=== PATIENT | male | born 1955 | race Caucasian/White ===

== ENCOUNTER → 2016-07-17 | Outpatient (CLI) | payer OTHER | LOC: FIMAGING 07:23 | PROVIDERS: ATTEND Family Medicine | DX: M77.32 Calcaneal spur, left foot (principal); E83.52 Hypercalcemia; E55.9 Vitamin D deficiency, unspecified; E21.3 Hyperparathyroidism, unspecified ==

== ENCOUNTER → 2016-11-09 | Outpatient (CLI) | payer OTHER | LOC: FIMAGING 10:02 | PROVIDERS: ATTEND Surgery | DX: D35.1 Benign neoplasm of parathyroid gland (principal); E21.3 Hyperparathyroidism, unspecified; E83.52 Hypercalcemia | CPT/HCPCS: 78070; A9500 ==

== ENCOUNTER → 2016-11-26 | Outpatient (CLI) | payer OTHER | LOC: FIMAGING 15:54 | PROVIDERS: ATTEND Surgery | DX: D44.2 Neoplasm of uncertain behavior of parathyroid gland (principal); E04.1 Nontoxic single thyroid nodule; E21.3 Hyperparathyroidism, unspecified ==

== ENCOUNTER 2016-12-28 10:23 | Observation (INO) | payer OTHER ==
[2016-12-28] MEDS ORDERED: THROMBIN (BOVINE) 5,000 UNIT VIAL TP ONE (10:25)
[2016-12-28] MEDS ORDERED: BUPIVACAINE 0.25% 30 ML SDV ONE (10:25)
[2016-12-28] MEDS ORDERED: ceFAZolin 2 GM/DEXTROSE 100 ML IV ONE (10:59)
[2016-12-28] MEDS ORDERED: LR 1,000 ML IV SCH (10:59)
--- NOTE | 2016-12-28 11:04 | PDHPUP ---
History & Physical Update H&P update statement: This history and physical update is based on an assessment of the patient which was completed after admission or registration (within 24 hours), but prior to the surgery/procedure.
[2016-12-28] MEDS ORDERED: MIDAZOLAM 2 MG/2 ML VIAL IVP ONE (11:18)
--- NOTE | 2016-12-28 11:18 | PDANEPAE ---
ANE History of Present Illness 61 yo for parathroidectomy ANE Past Medical History - Cardiovascular History Hx Hypertension: No Hx Arrhythmias: No Hx Chest Pain: No Hx Coronary Artery / Peripheral Vascular Disease: No Hx CHF / Valvular Disease: No Hx Palpitations: No - Pulmonary History Hx COPD: No Hx Asthma/Reactive Airway Disease: No Hx Recent Upper Respiratory Infection: No Hx Oxygen in Use at Home: No Hx Sleep Apnea: Yes Sleep Apnea Screening Result - Last Documented: Positive Pulmonary History Comment: dx with SHARRI -losing wt to alleviate condition. - Neurologic History Hx Cerebrovascular Accident: No Hx Seizures: No Hx Dementia: No - Endocrine History Hx Diabetes: No - Renal History Hx Renal Disorders: No - Liver History Hx Hepatic Disorders: No - Neurological & Psychiatric Hx Hx Neurological and Psychiatric Disorders: Yes Neurological / Psychiatric History Comment: Bipolar type 2 - Cancer History Hx Cancer: No - Congenital Disorder History Hx Congenital Disorders: No - GI History Hx Gastrointestinal Disorders: Yes - Other Health History Other Health History: hyperparathyroidism, Hypercalcemia, nodule of thyroid-3 cm. plantar fascitis. - Chronic Pain History Chronic Pain: Yes (muscle aches/Calcium) - Surgical History Prior Surgeries: L Bankhart procedure L shoulder. 3 arthroscopic sx on each knee. ganglion cyst x2. scar tissue excision foot. inguinal hernia w/mesh ANE Review of Systems Review of Systems: - Exercise capacity METS (RN): 4 METS ANE Patient History - Allergies Allergies/Adverse Reactions: No Known Allergies Allergy (Unverified 12/12/16 16:07) - Home Medications Home Medications: Seroquel 12/12/16 [Last Taken Unknown] Synthroid 12/12/16 [Last Taken Unknown] Viagra 12/12/16 [Last Taken Unknown] - NPO status NPO Since - Liquids (Date): 01/18/17 NPO Since - Liquids (Time): 09:00 NPO Since - Solids (Date): 01/17/17 NPO Since - Solids (Time): 20:00 - Smoking Hx Smoking Status: Former smoker ANE Labs/Vital Signs - Vital Signs Blood Pressure: 154/80 Heart Rate: 46 Respiratory Rate: 18 O2 Sat (%): 95 Height: 5 ft 10 in Weight: 86.183 kg ANE Physical Exam - Airway Neck exam: FROM Mallampati Score: Class 2 - Pulmonary Pulmonary: no respiratory distress - Cardiovascular Cardiovascular: regular rate and rhythym - ASA Status ASA Status: II ANE Anesthesia Plan Anesthesia Plan: general endotracheal anesthesia
[2016-12-28 11:28] LABS: % IMMATURE GRANULYOCYTES 0.1 % (0.0-1.1); ABSOLUTE IMMATURE GRANULOCYTES 0.01 10^3/uL (0.00-0.10); ADD DIFF? NO; ADD MORPH? NO; ADD SCAN? NO; ATYPICAL LYMPHOCYTE FLAG 0 (0-99); FRAGMENT RBC FLAG 0 (0-99); HEMATOCRIT 46.7 % (40.0-51.0); HEMOGLOBIN 16.1 g/dL (13.7-17.5); LEFT SHIFT FLG 0 (0-99); LIPEMIA HEMOLYSIS FLAG 90 (0-99); MEAN CELL HEMOGLOBIN 29.7 pg (27.9-34.1); MEAN CELL HEMOGLOBIN CONCENTR. 34.5 g/dL (32.4-36.7); MEAN PLATELET VOLUME 9.6 fL (8.7-11.7); PLATELET CLUMPS FLAG 20 (0-99); PLATELET COUNT 302 10^3/uL (150-400); RED BLOOD CELL COUNT 5.43 10^6/uL (4.40-6.38); RED CELL DISTRIBUTION WIDTH 13.2 % (11.5-15.2)
[2016-12-28] MEDS ORDERED: PROPOFOL/EMULSION 500 MG/50 ML BOTTLE IV ONE (11:41)
[2016-12-28] MEDS ORDERED: REMIFENTANIL HCL 1 MG VIAL ONE (11:41)
[2016-12-28] MEDS ORDERED: fentaNYL 100 MCG/2 ML INJ ONE (11:41)
[2016-12-28 11:42] LABS: ANION GAP 9 mEq/L (8-16); CALCIUM 12.4 mg/dL (8.5-10.4); CARBON DIOXIDE 22 mEq/l (22-31); CHLORIDE 107 mEq/L (97-110); CREATININE 1.1 mg/dL (0.7-1.3); GLOMERULAR FILTRATION RATE > 60; GLUCOSE 94 mg/dL (70-100); POTASSIUM 4.5 mEq/L (3.5-5.2); SODIUM 138 mEq/L (134-144)
[2016-12-28 12:48] LABS: PTH INTACT NO MINERALS 263.9 pg/ml (10.8-79.4)
[2016-12-28] MEDS ORDERED: ONDANSETRON 4 MG/2 ML VIAL ONE (13:34)
[2016-12-28] MEDS ORDERED: DEXAMETHASONE 4 MG/ML VIAL ONE (13:34)
[2016-12-28] MEDS ORDERED: ROCURONIUM 50 MG/5 ML VIAL ONE (13:34)
[2016-12-28] MEDS ORDERED: HYDROmorphONE/DILAUDID 1 MG/ML INJ IVP PRN (13:35)
[2016-12-28] MEDS ORDERED: NALOXONE HCL 0.4 MG/ML INJ IVP PRN (13:35)
[2016-12-28] MEDS ORDERED: ONDANSETRON 4 MG/2 ML VIAL IVP PRN (13:35)
[2016-12-28] MEDS ORDERED: fentaNYL 100 MCG/2 ML INJ IVP PRN (13:35)
--- NOTE | 2016-12-28 13:52 | POSTOPPROG ---
Post Op Note Date of Operation: 12/28/16 Surgeon: Domingo Cardona (, FACS) Inspector Wire Rope: Jailene Stern RN-FA Anesthesiologist: Ernesto Gotti MD Anesthesia: GET(General Endotracheal) Pre-op Diagnosis: hyperparathyroidism/left thyroid nodule Post-op Diagnosis: same Procedure: parathyroidectomy/left thyroid lobectomy Findings: 2300 mg LLP parathyroid/benign appearing follicular nodule left upper pole Inf/Abcess present in the surg proc area at time of surgery?: No EBL: Minimal Complications: none Specimen(s): Left lower pole parathyroid adenoma Left thyroid lobe
[2016-12-28] MEDS ORDERED: HYDROCODONE/APAP 5/325 TAB PO PRN (13:56)
--- NOTE | 2016-12-28 14:42 | GOP ---
[f rep st] OPERATIVE REPORT DATE OF OPERATION: 12/28/2016 SURGEON: Domingo Cardona MD, FACS POLITICAL ORGANIZER: HIREN Perdomo ANESTHESIA: General endotracheal, Yarelis Tarango MD. PREOPERATIVE DIAGNOSIS: 1. Hyperparathyroidism. 2. Left thyroid nodule. POSTOPERATIVE DIAGNOSIS: 1. Hyperparathyroidism. 2. Left thyroid nodule. PROCEDURE PERFORMED: 1. Parathyroidectomy. 2. Left thyroid lobectomy. FINDINGS: 2300 mg parathyroid adenoma in the left lower pole position, left upper pole thyroid nodule consistent with a follicular adenoma on frozen section. Permanent section pending. Appropriate intraoperative decline in the PTH levels at 10 and 20 minutes after removal of the adenoma. ESTIMATED BLOOD LOSS: Of the procedure was 10 mL or less. DESCRIPTION OF PROCEDURE: After informed consent was obtained, the patient brought to the operating room and placed under general anesthesia. The neck was prepped and draped in usual fashion. Before proceeding, a time-out identification of the patient was performed. 0.25% Marcaine was used to infiltrate the planned incision site. A transverse incision was made through the skin and subcutaneous tissues and platysma muscle. Flaps were elevated cephalad to the cricothyroid membrane, inferiorly to the suprasternal notch. The strap muscles were mobilized in the midline and dissected to the left of midline, entering a plane of dissection deep to the strap muscles and superficial to the thyroid gland. The thyroid gland was smooth in contour and had a soft nodule in the upper pole measuring approximately 3 cm consistent with the preoperative imaging findings. The gland was rotated medially. The inferior thyroidal vessels were identified and dispatched with the Harmonic scalpel. The parathyroid adenoma was found in the left lower pole position which was quite low in the neck and directly behind the head of the clavicle. This appeared to be a large gland and was slowly and carefully dissected from the surrounding structures using the bipolar cautery sparingly for hemostasis. Larger vessels were divided with the Harmonic scalpel. After the gland had been removed, the time was marked and the specimen submitted for frozen section. Blood samples were obtained and submitted at 10 and 20 minutes for rapid PTH assay intraoperatively. While we were waiting for the results of his pathology and laboratory tests, the left thyroid lobe was removed as follows: The superior pole vessels were isolated and taken down with the Harmonic scalpel. The gland was rotated medially. The middle thyroid vein was identified, dispatched with a Harmonic scalpel and the gland further dissected anteriorly. Near the ligament of Masterson, the recurrent nerve was identified and preserved in the course of dissection. The thyroid tissue at the ligament of Masterson was incised sharply and the remainder of the glandular tissue along the trachea dissected bluntly toward the midline. Here the gland was then divided in the midline with the Harmonic scalpel. The superior parathyroid gland on the left was identified. No dissection was performed on the right. Once we completed thyroidectomy, the pathologist reported the weight of the adenoma and its characteristics consistent with a hyperplastic parathyroid gland. PTH levels came back within appropriate range ( #1 was 34, #2 was 18) with a preoperative PTH of 263. Strap muscles were approximated in the midline with 3-0 Vicryl suture. Subcutaneous tissues and skin closed with 3-0 Vicryl suture. Skin was closed with 4-0 Monocryl suture in subcuticular fashion. Topical Dermabond was applied. The patient was extubated and returned to the recovery room in satisfactory condition. COMPLICATIONS: None. /[id number]/MODL MTDD
[2016-12-28] MEDS ORDERED: QUEtiapine FUMARATE 100 MG TAB PO SCH ×2 (14:45→21:00)
[2016-12-28] MEDS: CALCIUM CARBONATE 500 MG CHEWABLE TAB PO SCH ×3 (16:15→22:06)
[2016-12-28] MEDS: CALCITRIOL 0.25 MCG CAP PO SCH (16:28)
[2016-12-28 23:53] VITALS: PULSE 52; RESP 16; TEMP 98.3
[2016-12-29 05:31] VITALS: BP 138/63; O2SAT 95
[2016-12-29 05:42] LABS: CALCIUM 10.7 mg/dL (8.5-10.4)
[2016-12-29 05:50] LABS: PTH INTACT NO MINERALS 4.3 pg/ml (10.8-79.4)
[2016-12-29] MEDS ORDERED: LEVOTHYROXINE 50 MCG TAB PO SCH (06:00)
--- NOTE | 2016-12-29 07:38 | PDDCSUM ---
Discharge Summary Discharge Summary: DOA 12/28/16 DOD 12/29/16 DC Diagnosis: 1. hyperparathyroidism 2. 3 cm left thyroid nodule 3. hx bipolar disorder 4. hypothyroidism 5. resting bradycardia Procedures: 11/27/16 parathyroidectomy/left thyroid lobectomy Course: Tee was admitted for elective parathyroidectomy/left thyroid lobectomy. He was found to have a 2300mg left lower pole parathyroid adenoma at the time of surgery as well as a benign appearing 3cm follicular nodule in the left superior pole. Intra-op his PTH dropped from 263.9 to 34.1 in 10 minutes and 18.1 in 20 minutes. The morning after surgery his Ca++ was 10.7, down from a pre-op of 12.4, and his PTH fell further to 4.3. The right neck was not explored at the time of surgery. He has lifelong resting bradycardia with a typical HR of 48. He had no hemodynamic instability evi-operatively. He felt better almost immediately after surgery and the morning after surgery felt no pain with resolution of his chronic musculo-skeletal pain that he had for over a decade. His incision was uncomplicated and he was discharged home in good condition. He will follow up for repeat PTH w/ minerals and incision check. DC meds: reconciled in the EMR Calcitriol .25 mcg po q day #30 CaCarbonate 500 mg TID hydrocodone 5/325 1 po q4H prn Synthroid 50 mcg po q day Seroquel 100 mg po q day prn tylenol/ibuprofen OTC Roc Cardona MD, FACS
[2016-12-29] MEDS: CALCITRIOL 0.25 MCG CAP PO SCH (08:33)
[2016-12-29] MEDS: CALCIUM CARBONATE 500 MG CHEWABLE TAB PO SCH (08:33)
[2016-12-29] MEDS ORDERED: ENOXAPARIN 40 MG/0.4 ML SYR SC SCH (09:00)
[2016-12-29] MEDS ORDERED: QUEtiapine FUMARATE 100 MG TAB PO SCH (21:00)
[2016-12-30] MEDS ORDERED: LEVOTHYROXINE 50 MCG TAB PO SCH (06:00)
--- NOTE | 2016-12-30 17:06 | ASDISCHSUM ---
Discharge Information Plan Status:Home with No Needs Medically Cleared to Leave:12/29/2016 Discharge Date:12/29/2016 09:00 AM CM D/C Disposition:Home, Routine, Self-Care ADT D/C Disposition:Home, Routine, Self-Care Projected Discharge Date:12/29/2016 12:00 AM Transportation at D/C:Family Discharge Delay Reason: Follow-Up Date:12/29/2016 12:00 AM Discharge Slot: Final Diagnosis: Placement Information Patient Contact Information Contact Name:ANNA Relationship: Address:[address] [place] [address] Work Phone: City:[place] Phone: State/Zip Code:[place] [address] Email: Financial Information Financial Class:HMO and PPO Plans Primary Plan Desc: DEBBIE RODGERS Primary Plan Number:[id number] Secondary Plan Desc: Secondary Plan Number: Assessment Information Intervention Information
== END 2016-12-29 09:00 | disposition home or self-care (01) ==
LOC: F3E 10:23
PROVIDERS: ADMIT Surgery; ATTEND Surgery
PROC: 0GBG0ZX Excision of Left Thyroid Gland Lobe, Open Approach, Diagnostic (ICD-10-PCS; principal; 2016-12-28 12:30)
PROC: 0GBR0ZX Excision of Parathyroid Gland, Open Approach, Diagnostic (ICD-10-PCS; principal; 2016-12-28 12:30)
DX: E21.3 Hyperparathyroidism, unspecified (principal); E04.1 Nontoxic single thyroid nodule; F31.9 Bipolar disorder, unspecified; E03.9 Hypothyroidism, unspecified; R00.1 Bradycardia, unspecified
CPT/HCPCS: 60210; 60500; G0378; J0690; J1100; J2250; J2405; J2704; J3010

== ENCOUNTER → 2017-09-25 | Outpatient (CLI) | payer OTHER | LOC: FIMAGING 09:31 | PROVIDERS: ATTEND Family Medicine | DX: M53.82 Other specified dorsopathies, cervical region (principal); M50.31 Other cervical disc degeneration, high cervical region ==